=== PATIENT | female | born 2000 | race Caucasian/White ===

== ENCOUNTER 2018-02-21 12:11 | Observation (INO) | payer BC ==
[~2018-02-21] VITALS: Ht 157.5 cm; Wt 50.0 kg
--- NOTE | ~2018-02-21 | HP ---
PATIENT: BETTY PIERRE MEDICAL RECORD: [id number] ACCOUNT: [id number] LOCATION:[address] : [birth year] ADMISSION DATE: 02/21/18 PCP: ASHKAN SCRUGGS HISTORY AND PHYSICAL EXAMINATION HISTORY OF PRESENT ILLNESS: Ms. Pierre is a 17-year-old white female that presents to the Emergency Room with back pain, fever. She started having urinary tract symptoms approximately 2 weeks ago, was seen in the Emergency Room and started on antibiotics. She states she took all of her antibiotics. She presents today with findings compatible with pyelonephritis. She has been placed on observation for IV fluids and pain control. We will culture her urine. PAST MEDICAL HISTORY: Significant for depression and anxiety, for which she takes meds. PAST SURGICAL HISTORY: None. ALLERGIES: None. MEDICATIONS: Home medications include citalopram 20 mg once a day and hydroxyzine on a p.r.n. basis. FAMILY HISTORY: Noncontributory. SOCIAL HISTORY: The patient states that she does use tobacco and drink on occasion. REVIEW OF SYSTEMS: Significant for fever. No chest pain. No shortness of breath. She has had nausea and vomiting, abdominal and back pain, dysuria for 2 weeks. She has been okay. PHYSICAL EXAMINATION: GENERAL: She appears moderately ill. HEENT: Her mucous membranes are dry. NECK: Soft and supple. HEART: Regular. LUNGS: Clear. ABDOMEN: Soft. Tenderness in the back with palpation. IMPRESSION: Acute pyelonephritis. PLAN: Observation, IV fluids, culture urine, IV antibiotics, pain control. See orders for rest of the plan. TRANSINT:[id number] Voice Confirmation ID: [id number] DOCUMENT ID: [id number] HISTORY AND PHYSICAL [id number] BETTY PIERRE JOSE ARMANDO RUIZ DO at 2117 CC: [id number] DICTATION DATE: 02/21/181928 ELEMENTARY ASSISTANT PRINCIPAL: 02/21/182018 ADM IN [place] [address] [place] [address]
[2018-02-21 13:46] LABS: HCG URINE NEGATIVE (NEGATIVE)
[2018-02-21 13:50] LABS: APPEARANCE HAZY (CLEAR); COLOR STRAW (YELLOW); NITRITE NEGATIVE (NEGATIVE)
[2018-02-21 13:51] LABS: BACTERIA MODERATE /hpf (NONE SEEN); BILIRUBIN NEGATIVE (NEGATIVE); EPITHELIAL CELLS 0-5 /hpf (0-5); GLUCOSE NEGATIVE (NEGATIVE); KETONE NEGATIVE (NEGATIVE); PROTEIN NEGATIVE (NEGATIVE); RED CELLS - URINE 0-5 /hpf (0-5); UROBILINOGEN NORMAL (NORMAL)
[2018-02-21 13:52] LABS: AMORPHOUS SEDIMENT <1+ /lpf (NONE SEEN); MUCUS <1+ /lpf (NONE SEEN)
[2018-02-21 14:03] LABS: HEMATOCRIT 43.5 % (36.0-48.0); HEMOGLOBIN 14.4 g/dL (12-16); MCHC 33.1 g/dL (31.0-37.0); MCV 87.5 fL (80.0-100.0); MEAN PLATELET VOLUME 11.3 fL (7.4-10.4); PLATELET COUNT 306 10x3/uL (130-400); RBC 4.97 10x6/uL (4.00-5.40); RDW 14.1 % (11.5-14.5); WBC 25.3 10x3/uL (4.8-10.8)
[2018-02-21 14:28] LABS: LYMPHOCYTES 7 % (15-50); MONOCYTES 2 % (2-11); NEUTROPHILS 90 % (40-80); PLATELET ESTIMATE NORMAL
[2018-02-21 14:30] LABS: PLATELET MORPHOLOGY PLT CLUMPS PRESENT
[2018-02-21 14:44] LABS: ALBUMIN 3.9 g/dL (3.4-5.0); ALKALINE PHOSPHATASE 79 U/L (46-116); ALT (SGPT) 22 U/L (10-68); BILIRUBIN - TOTAL 0.38 mg/dL (0.2-1.3); CALC OSMOLALITY 282 mosm/kg (275-300); CALCIUM 8.7 mg/dL (8.5-10.1); CARBON DIOXIDE 21.8 mmol/L (21.0-32.0); CHLORIDE - SERUM 105 mmol/L (98-107); CREATININE - SERUM 0.5 mg/dL (0.6-1.3); GLUCOSE 149 mg/dL (74-106); POTASSIUM - SERUM 4.3 mmol/L (3.5-5.1); PROTEIN - SERUM 7.6 g/dL (6.4-8.2); SODIUM 141 mmol/L (136-145); UREA NITROGEN 10 mg/dL (7-18); eGFR NON AFRICAN AMERICAN > 90 mL/min (90-120)
[2018-02-21 14:47] LABS: AMYLASE - SERUM 76 U/L (25-115); LIPASE 207 U/L (73-393); TROPONIN-I < 0.017 ng/mL (0.000-0.060)
[2018-02-21 14:55] LABS: UDS - AMPHET NEGATIVE QUAL (NEGATIVE); UDS - BARB NEGATIVE QUAL (NEGATIVE); UDS - BENZO NEGATIVE QUAL (NEGATIVE); UDS - COCAINE NEGATIVE QUAL (NEGATIVE); UDS - OPIATE NEGATIVE QUAL (NEGATIVE); UDS - PCP NEGATIVE QUAL (NEGATIVE); UDS - THC POSITIVE QUAL (NEGATIVE)
[2018-02-21 15:48] VITALS: BP 131/81
[2018-02-21 16:45] VITALS: BP 110/67
[2018-02-21 18:16] VITALS: BP 108/63
[2018-02-21 20:53] VITALS: BP 104/56
[2018-02-22 00:12] VITALS: BP 95/46; Ht 157.5 cm; Wt 50.0 kg
[2018-02-22 05:26] VITALS: BP 96/48
[2018-02-22 07:04] LABS: BASOPHILS 0.1 % (0-2); EOSINOPHILS 0.4 % (0-7); HEMOGLOBIN 11.9 g/dL (12-16); IMMATURE GRANULOCYTES 0.2 % (0-5); LYMPHOCYTES 21.7 % (15-50); MCH 28.5 pg (26.0-34.0); MCHC 33.1 g/dL (31.0-37.0); MCV 86.1 fL (80.0-100.0); MEAN PLATELET VOLUME 11.2 fL (7.4-10.4); MONOCYTES 5.7 % (2-11); NEUTROPHILS 71.9 % (40-80); RBC 4.18 10x6/uL (4.00-5.40); RDW 14.1 % (11.5-14.5)
[2018-02-22 07:10] LABS: PLATELET COUNT 231 10x3/uL (130-400); WBC 12.6 10x3/uL (4.8-10.8)
[2018-02-22 07:19] LABS: ALKALINE PHOSPHATASE 57 U/L (46-116); BILIRUBIN - TOTAL 0.54 mg/dL (0.2-1.3); CALCIUM 8.2 mg/dL (8.5-10.1); CARBON DIOXIDE 24.1 mmol/L (21.0-32.0); CHLORIDE - SERUM 108 mmol/L (98-107); CREATININE - SERUM 0.5 mg/dL (0.6-1.3); POTASSIUM - SERUM 3.7 mmol/L (3.5-5.1); SODIUM 140 mmol/L (136-145); eGFR NON AFRICAN AMERICAN > 90 mL/min (90-120)
[2018-02-22 07:23] LABS: ALBUMIN 2.9 g/dL (3.4-5.0); ALT (SGPT) 16 U/L (10-68); CALC OSMOLALITY 275 mosm/kg (275-300); GLUCOSE 93 mg/dL (74-106); UREA NITROGEN 5 mg/dL (7-18)
[2018-02-22 11:30] VITALS: BP 101/47
[2018-02-22 11:56] LABS: HCG URINE NEGATIVE (NEGATIVE)
[2018-02-22] MEDS ORDERED: BACTRIM 400-801 TAB PO (14:11)
== END 2018-02-22 15:21 | disposition home or self-care (01) ==
LOC: D.ER 12:11 → D.EDHOLD 19:07 → OBSVTIME 19:07 → D.M3 20:27
PROVIDERS: Family Medicine
DX: N10 Acute pyelonephritis (principal); F41.9 Anxiety disorder, unspecified; F32.9 Major depressive disorder, single episode, unspecified; Z72.0 Tobacco use

== ENCOUNTER 2018-09-28 17:01 | Observation (INO) | payer OTHER ==
[~2018-09-28] VITALS: Ht 157.5 cm; Wt 46.5 kg
[~2018-09-28 17:01] MED LIST: BACTRIM 400-801 TAB PO
[2018-09-28] MEDS ORDERED: PHENERGAN25 M1 (17:14)
[2018-09-28 17:35] LABS: BASOPHILS 0 % (0-2); EOSINOPHILS 0 % (0-7); HEMOGLOBIN 13.7 g/dL (12-16); IMMATURE GRANULOCYTES 0.4 % (0-5); LYMPHOCYTES 4.7 % (15-50); MCH 28.8 pg (26.0-34.0); MCHC 34.3 g/dL (31.0-37.0); MCV 84.2 fL (80.0-100.0); MEAN PLATELET VOLUME 10.6 fL (7.4-10.4); MONOCYTES 1.6 % (2-11); NEUTROPHILS 93.3 % (40-80); RBC 4.75 10x6/uL (4.00-5.40); RDW 14.1 % (11.5-14.5); WBC 19.3 10x3/uL (4.8-10.8)
[2018-09-28 17:39] LABS: PLATELET COUNT 308 10x3/uL (130-400)
[2018-09-28 17:55] LABS: ALBUMIN 3.9 g/dL (3.4-5.0); ALKALINE PHOSPHATASE 89 U/L (46-116); ALT (SGPT) 28 U/L (10-68); AMYLASE - SERUM 63 U/L (25-115); BILIRUBIN - TOTAL 0.66 mg/dL (0.2-1.3); CALC OSMOLALITY 275 mosm/kg (275-300); CARBON DIOXIDE 22.9 mmol/L (21.0-32.0); CHLORIDE - SERUM 101 mmol/L (98-107); CREATININE - SERUM 0.7 mg/dL (0.6-1.3); LIPASE 127 U/L (73-393); POTASSIUM - SERUM 3.9 mmol/L (3.5-5.1); PROTEIN - SERUM 7.8 g/dL (6.4-8.2); SODIUM 136 mmol/L (136-145); UREA NITROGEN 15 mg/dL (7-18); eGFR NON AFRICAN AMERICAN > 90 mL/min (90-120)
[2018-09-28 17:56] LABS: GLUCOSE 151 mg/dL (74-106)
[2018-09-28 18:01] LABS: HCG SERUM NEGATIVE (NEGATIVE)
[2018-09-28 23:19] LABS: APPEARANCE CLEAR (CLEAR); BILIRUBIN NEGATIVE (NEGATIVE); COLOR YELLOW (YELLOW); GLUCOSE NEGATIVE (NEGATIVE); KETONE SMALL mg/dL (NEGATIVE); NITRITE NEGATIVE (NEGATIVE); PROTEIN NEGATIVE (NEGATIVE); UROBILINOGEN NORMAL (NORMAL)
[2018-09-28 23:22] LABS: BACTERIA FEW /hpf (NONE SEEN); RED CELLS - URINE 0-5 /hpf (0-5); WHITE CELLS - URINE 0-5 /hpf (0-5)
[2018-09-29 01:13] VITALS: BP 110/53
--- NOTE | 2018-09-29 02:10 | NUR ---
RECIEVED TO ROOM 2128 FROM ER VIA . PT A&O, RESPERATIONS EVEN ON RA. IV TO LEFT FOREARM WITH FLAGYL INFUSING, IV SITE CLEAN AND DRY. HISTORY AND MED REC OBTAINED. PT CURRENTLY DENIES PAIN OR NEEDS AT THIS TIME, BED LOW, CL IN REACH.
--- NOTE | 2018-09-29 03:06 | NUR ---
MORPHINE 2 MG GIVEN FOR C/O PAIN TO ABD. RATES PAIN AT AN 8 ON PAIN SCALE.
--- NOTE | 2018-09-29 03:40 | NUR ---
ZOFRAN DRIP INFUSING TO LEFT ARM.
[2018-09-29 04:19] VITALS: BMI 22.0
--- NOTE | 2018-09-29 05:42 | NUR ---
IV DISCONNECTED AND COVERED SO PT CAN TAKE SHOWER.
[2018-09-29 05:55] VITALS: BP 103/58
--- NOTE | 2018-09-29 06:04 | NUR ---
PT AMBULATING IN [place], GAIT STEADY.
[2018-09-29 07:42] VITALS: BP 96/57
--- NOTE | 2018-09-29 07:46 | NUR ---
MORNING ROUNDS MADE. PT LAYING IN BED WITH SIGNIFICANT OTHER. ZOFRAN CONNECTED TO IV IN L FA @ 4.7 WITH NS @ 100. RM AIR. BREATHING EVEN AND UNLABORED. NO C/O N/V. ASKED IF SHE COULD HAVE PAIN MEDS AT THIS TIME. INFORMED PT I WOULD CHECK ON EMAR. NO FURTHER CONCERNS AT THSI TIME. FALL PRECATIONS IN PLACE. WILL CTM.
--- NOTE | 2018-09-29 10:01 | NUR ---
PT TOOK MEDICATIONS WITHOUT DIFFICULTY. C/O PAIN IN LOWER ABD OF A 6/10 ON A 10 POINT PAIN SCALE. MORPHINE GIVEN IN IV TO R FA, PATENT, DRSG C/D/I. NO REDNESS OR EDEMA NOTED. FAMILY AT [facility]. NO FURTHER CONCERNS AT THIS TIME. FALL PRECAUTIONS IN PLACE. NICOTINE PATCH TO L SHOULDER. WILL CTM.
[2018-09-29 11:25] VITALS: BP 86/45
[2018-09-29 11:33] VITALS: BP 93/53
[2018-09-29 12:56] VITALS: Ht 157.5 cm; Wt 46.5 kg
--- NOTE | 2018-09-29 13:26 | NUR ---
I have reviewed this patient and I concur with the Shift Assessment completed by the Licensed Practical Nurse today this shift.
[2018-09-29] MEDS ORDERED: FLAGYL500 MG PO (14:21)
--- NOTE | 2018-09-29 14:37 | MORECARE ---
CASE MANAGEMENT DISCHARGE SUMMARY PATIENT: BETTY BRADFORD UNIT: [id number] ADM DATE: 09/29/18 AGE: 18 : 98 SEX: F ROOM/BED: D.4189 AUTHOR: IMANI BHATT PHYSICIAN: REFERRING PHYSICIAN: JAMIE CASTANEDA MD DATE OF SERVICE: 09/29/18 Discharge Plan Patient Name: BETTY BRADFORD Facility: [facility]:[place] : 2000 Planned Disposition: Home Anticipated Discharge Date: 09/29/18 Discharge Date: Expected LOS: 1 Initial Reviewer: [email or web address] Initial Review Date: 09/29/2018 Generated: 09/29/18 3:37 pm Patient Name: BETTY BRADFORD Page 48764 at 1437 All edits/amendments must be made on the electronic document DICTATION DATE: 09/29/18 1436 PATTERN CHANGER: SUSHIL 09/29/18 1436 RPT#: [id number] DC DATE: STATUS: ADM IN [facility] [address] [place] [address] END OF REPORT
--- NOTE | 2018-09-29 15:07 | NUR ---
PT C/O PAIN/CRAMPING IN LOWER ABD OF A 09/09. MORPHINE GIVEN TO IV IN L FA. NO FURTHER CONCERNS AT THIS TIME. WILL CTM
[2018-09-29 15:26] VITALS: BP 116/59
--- NOTE | 2018-09-29 15:36 | NUR ---
DISCHARGE GIVEN TO PT. NO CONCERNS AT THIS TIME IV IN L FA REMOVED, TIP INTACT.
--- NOTE | 2018-09-29 16:30 | NUR ---
PT DC TO DR. MAZARIEGOS OFFICE IN [facility] VIA WHEELCHAIR.
--- NOTE | 2018-09-29 23:22 | HP ---
PATIENT: BETTY BRADFORD MEDICAL RECORD: [id number] ACCOUNT: [id number] LOCATION:[facility] D2129 : [birth year] ADMISSION DATE: 09/29/18 PCP: No PCP HISTORY AND PHYSICAL EXAMINATION DATE OF ADMISSION: 09/29/2018 CHIEF COMPLAINT: Abdominal pain. HISTORY OF PRESENT ILLNESS: This is a 18-year-old white female who presented to the Emergency Department the night of 09/28/2018 complaining of nausea, vomiting, diarrhea that started that morning. She states she was diagnosed with gastroparesis last year. She states she saw a GI doctor, but does not remember who. In the ER, her white blood cell count was 19,300 and the rest of her lab was essentially normal. With her elevated white count, nausea, vomiting and diarrhea she is assigned to observation. Ultrasound of the pelvis was done showing a 3.9 cm cyst in the left ovary. CT of the abdomen and pelvis showed bilateral ovarian cysts and CUSTOMS COMPLIANCE ANALYST was also consulted. PAST MEDICAL AND SURGICAL HISTORY: She has had natural childbirth times 1. PAST SURGICAL HISTORY: IUD placement. DRUG ALLERGIES: None. MEDICATION: Promethazine p.r.n. FAMILY HISTORY: Father of a sudden AL. HABITS: She does smoke. Denies alcohol or drugs. SOCIAL HISTORY: She has a significant other. She has a child. REVIEW OF SYSTEMS: GENERAL: No major weight changes. HEENT: No particular sinus or allergy problems. RESPIRATORY: No history of asthma or emphysema. CARDIAC: No history of heart trouble. GASTROINTESTINAL: Reportedly a diagnosis of gastroparesis. GENITOURINARY: No significant problems there. MUSCULOSKELETAL: No problems. NEUROLOGIC: No history of migraines or seizures. PSYCHIATRIC: No depression or melancholia. PHYSICAL EXAMINATION: VITAL SIGNS: Temperature 98.1, pulse 62, respirations 18, blood pressure is 86/45. GENERAL: She is awake and alert, in no acute distress. She is feeling much better. SKIN: Warm and dry. HEENT: Grossly within normal limits. NECK: Supple. HEART: Regular rate and rhythm without murmur. LUNGS: Clear. ABDOMEN: Soft, nontender. HISTORY AND PHYSICAL [id number] BETTY BRADFORD EXTREMITIES: No edema. LABORATORY DATA: CBC with a white count of 19,300, hemoglobin 13.7, hematocrit is 40. Basic metabolic panel is all normal. Liver functions are all normal. Amylase and lipase were normal. Beta serum hCG is negative. CT of the abdomen and pelvis shows nothing acute. There are bilateral ovarian cysts. Appendix appears normal. Ultrasound of the pelvis shows 3.9 cm cyst in the left ovary. IUD is in place. Urinalysis; yellow, clear, small amount of ketones, 1+ blood, 5-10 epithelial cells, 0-4 clue cells, few bacteria. ASSESSMENT: 1. Nausea, vomiting, diarrhea with history of gastroparesis. 2. Elevated white count. 3. Ovarian cyst. PLAN: Consult Dr. Sims, Dr. Vazquez. The patient started on IV Flagyl and IV fluids. She states she is already feeling better. I spoke with Dr. Vazquez who has seen the patient in the room and he wants the patient to be brought to his office this afternoon, so he can remove the IUD. He did remark that there seemed to be a vaginal infection. After she completes his exam, in my opinion, she can be discharged home with follow up with Rajani Gunn APN, at [facility]. TRANSINT:[id number] Voice Confirmation ID: [id number] DOCUMENT ID: [id number] JAMIE CASTANEDA MD at 7772 CC: [id number] DICTATION DATE: 09/29/18 1336 BEAR KEEPER: 09/29/18 1420 DIS IN 09/29/18 [facility] [address] [place] [address]
== END 2018-09-29 16:30 | disposition home or self-care (01) ==
LOC: D.ER 17:01 → D.EDHOLD 09-29 00:10 → D.M2 09-29 00:10 → OBSVTIME 09-29 00:10 → D.M2 09-29 00:49
PROVIDERS: Family Medicine; ADMIT Family Medicine; ATTEND Family Medicine
DX: N76.0 Acute vaginitis (principal); N83.209 Unspecified ovarian cyst, unspecified side; K59.09 Other constipation

== ENCOUNTER 2018-11-08 03:30 | Emergency (ER) | payer BC ==
[~2018-11-08] VITALS: Ht 157.5 cm; Wt 50.0 kg
[~2018-11-08 03:30] MED LIST changes: +FLAGYL500 MG PO; +PHENERGAN25 M1
[2018-11-08 03:34] VITALS: Ht 157.5 cm; Wt 50.0 kg
[2018-11-08 04:16] LABS: BASOPHILS 0.1 % (0-2); EOSINOPHILS 0.1 % (0-7); HEMATOCRIT 38.1 % (36.0-48.0); IMMATURE GRANULOCYTES 0.2 % (0-5); LYMPHOCYTES 12.4 % (15-50); MCH 28.7 pg (26.0-34.0); MCHC 34.1 g/dL (31.0-37.0); MCV 84.1 fL (80.0-100.0); MEAN PLATELET VOLUME 11.2 fL (7.4-10.4); NEUTROPHILS 84.2 % (40-80); PLATELET COUNT 235 10x3/uL (130-400); RBC 4.53 10x6/uL (4.00-5.40); WBC 16.7 10x3/uL (4.8-10.8)
[2018-11-08 04:21] LABS: HCG SERUM NEGATIVE (NEGATIVE)
[2018-11-08 04:29] LABS: ALKALINE PHOSPHATASE 71 U/L (46-116); ALT (SGPT) 19 U/L (10-68); BILIRUBIN - TOTAL 0.46 mg/dL (0.2-1.3); CALC OSMOLALITY 282 mosm/kg (275-300); CARBON DIOXIDE 22.1 mmol/L (21.0-32.0); CHLORIDE - SERUM 104 mmol/L (98-107); CREATININE - SERUM 0.9 mg/dL (0.6-1.3); GLUCOSE 179 mg/dL (74-106); PROTEIN - SERUM 7.4 g/dL (6.4-8.2); SODIUM 139 mmol/L (136-145); UREA NITROGEN 15 mg/dL (7-18); eGFR NON AFRICAN AMERICAN 85 mL/min (90-120)
[2018-11-08 04:34] LABS: AMYLASE - SERUM 106 U/L (25-115); LIPASE 307 U/L (73-393); TROPONIN-I < 0.017 ng/mL (0.000-0.060)
[2018-11-08 04:48] LABS: APPEARANCE HAZY (CLEAR); COLOR YELLOW (YELLOW); SPECIFIC GRAVITY 1.015 (1.005-1.020)
[2018-11-08 04:49] LABS: BILIRUBIN NEGATIVE (NEGATIVE); GLUCOSE NEGATIVE (NEGATIVE); KETONE LARGE mg/dL (NEGATIVE); NITRITE NEGATIVE (NEGATIVE); PROTEIN NEGATIVE (NEGATIVE); UROBILINOGEN NORMAL (NORMAL)
[2018-11-08 04:53] LABS: UDS - AMPHET NEGATIVE QUAL (NEGATIVE); UDS - BARB NEGATIVE QUAL (NEGATIVE); UDS - BENZO NEGATIVE QUAL (NEGATIVE); UDS - COCAINE NEGATIVE QUAL (NEGATIVE); UDS - OPIATE NEGATIVE QUAL (NEGATIVE); UDS - PCP NEGATIVE QUAL (NEGATIVE); UDS - THC POSITIVE QUAL (NEGATIVE)
[2018-11-08] MEDS ORDERED: REGLAN10 MG PO (06:08)
[2018-11-08] MEDS ORDERED: PROTONIX40 MG PO (06:08)
[2018-11-08 09:28] VITALS: BP 85/42
== END 2018-11-08 09:25 | disposition home or self-care (01) ==
LOC: D.ER 03:30
PROVIDERS: Family Medicine
DX: G43.A0 Cyclical vomiting, in migraine, not intractable (principal)

== ENCOUNTER 2019-06-19 12:46 | Observation (INO) | payer BC ==
[~2019-06-19] VITALS: Ht 157.5 cm; Wt 56.7 kg
[~2019-06-19 12:46] MED LIST changes: +PROTONIX40 MG PO; +REGLAN10 MG PO
[2019-06-19 13:18] LABS: BASOPHILS 0.1 % (0-2); EOSINOPHILS 0.1 % (0-7); HEMOGLOBIN 10.9 g/dL (12-16); IMMATURE GRANULOCYTES 0.3 % (0-5); LYMPHOCYTES 4.2 % (15-50); MCH 28.9 pg (26.0-34.0); MCHC 34.1 g/dL (31.0-37.0); MCV 84.9 fL (80.0-100.0); MONOCYTES 2.8 % (2-11); NEUTROPHILS 92.5 % (40-80); RBC 3.77 10x6/uL (4.00-5.40); RDW 13.6 % (11.5-14.5)
[2019-06-19 13:19] LABS: PLATELET COUNT 339 10x3/uL (130-400)
[2019-06-19 13:23] LABS: APPEARANCE HAZY (CLEAR); COLOR YELLOW (YELLOW)
[2019-06-19 13:24] LABS: BILIRUBIN NEGATIVE (NEGATIVE); GLUCOSE NEGATIVE (NEGATIVE); KETONE NEGATIVE (NEGATIVE); NITRITE NEGATIVE (NEGATIVE); PROTEIN NEGATIVE (NEGATIVE); UROBILINOGEN NORMAL (NORMAL)
[2019-06-19 13:27] LABS: AMORPHOUS SEDIMENT >1+ /lpf (NONE SEEN); BACTERIA MANY /hpf (NEGATIVE); RED CELLS - URINE NONE SEEN /hpf (0-5); WHITE CELLS - URINE 0-5 /hpf (NEGATIVE)
[2019-06-19 13:28] LABS: CALC OSMOLALITY 271 mosm/kg (275-300); CARBON DIOXIDE 22.1 mmol/L (21.0-32.0); CHLORIDE - SERUM 101 mmol/L (98-107); CREATININE - SERUM 0.5 mg/dL (0.6-1.3); POTASSIUM - SERUM 4.1 mmol/L (3.5-5.1); SODIUM 136 mmol/L (136-145); UREA NITROGEN 9 mg/dL (7-18); eGFR NON AFRICAN AMERICAN > 90 mL/min (90-120)
[2019-06-19 13:30] LABS: GLUCOSE 117 mg/dL (74-106)
[2019-06-19 13:34] LABS: ALBUMIN 2.5 g/dL (3.4-5.0); ALKALINE PHOSPHATASE 162 U/L (46-116); ALT (SGPT) 26 U/L (10-68); BILIRUBIN - TOTAL 0.36 mg/dL (0.2-1.3); PROTEIN - SERUM 7.1 g/dL (6.4-8.2)
--- NOTE | 2019-06-19 14:45 | NUR ---
PROVIDED PT WITH ICE WATER PER PATIENT REQUEST. AYDEE BURGESS, STATES PT MAY HAVE WATER.
--- NOTE | 2019-06-19 15:07 | NUR ---
FLU SWAB COLLECTED AND SWENT TO LAB
[2019-06-19 15:53] VITALS: BP 97/45
--- NOTE | 2019-06-19 17:10 | NUR ---
PHONED DR HERRON; ORDERS RECEIVED TO KEEP PT OUTPATIENT FOR NOW, IVF OF 0.9% NS AT 150ML/HR, ZOFRAN IV Q4 HOURS PRN, LABS IN PROGRESS PER ER PHYSICIAN. TO ADD AMYLASE, LIPASE, CLEAR LIQUID DIET FOR NOW, ADVANCE TOLERATED OKAY, DOPPLER FHT EVERY SHIFT. WILL RELAY TO PT.
--- NOTE | 2019-06-19 17:15 | NUR ---
PT SIGNIFICANT OTHER "SPOONING" IN BED WITH PT, DISCUSSED POLICY TO NOT BEDSHARE SINCE SHE IS ILL AND . PT AND SIGNIFICANT OTHER STATES UNDERSTANDING. CALL LIGHT IN EASY REACH. REVIEWED PLAN OF CARE. WILL MONITOR.
--- NOTE | 2019-06-19 17:35 | NUR ---
FHT 160S PER DOPPLER WITH ACCELERATION TO 170S NOTED USING HANDHELD DOPPLER. VSS. IV OF NS AT 150ML/HR PER IVAC PUMP INFUSING PER MD ORDERS. REVIEWED MD ORDERS WITH PT AND PT SIGNIFICANT OTHER. BOTH STATE UNDERSTANDING. OFFERED CLEAR LIQUIDS, STATES WOULD LIKE A [place] SODA. SAME PROVIDED.
[2019-06-19 17:40] LABS: AMYLASE - SERUM 64 U/L (25-115); LIPASE 161 U/L (73-393)
--- NOTE | 2019-06-19 18:24 | NUR ---
pt c/o nausea, zofran 4mg sivp to left forearm piv site, tolerates well, site benign to inspection. will monitor.
[2019-06-19] MEDS ORDERED: AMOXICILLIN500 M1 PO (18:28)
[2019-06-19] MEDS ORDERED: ZOFRAN4 MG PO (18:30)
[2019-06-19 18:31] VITALS: Ht 157.5 cm; Wt 56.7 kg
[2019-06-19] MEDS ORDERED: PHENERGAN25 M1 (18:31)
--- NOTE | 2019-06-19 19:27 | NUR ---
PT MOVED TO [facility]OM[facility]S SERVICES ROOM 19 FOR CONTINUOUS ANTEPARTUM CARE.
[2019-06-19 20:58] VITALS: BP 107/57
--- NOTE | 2019-06-19 20:58 | NUR ---
VSS. PT COMPLAINS OF 3/10 HEADACHE PAIN. ONE TIME DOSE OF NORCO 5 PROVIDED TO PT.PT STATES SHE CURRENTLY DOES NOT FEEL NAUSEATED. HEART TONES OF 164 VIA DOPPLER. FAMILY AT BEDSIDE. BED IN LOWEST POSITON, SIDE RAILS UPX2, CALL LIGHT AND PHONE IN PLACE.
[2019-06-20 00:40] VITALS: BP 99/52
--- NOTE | 2019-06-20 00:40 | NUR ---
VSS. HEART TONES 168 VIA DOPPLER, PT STATES PAIN IS A 1/10 TO HER HEAD. PT WAS NAUSEATED, RN ADMINISTERED HER PRN ZOFRAN 4MG IVP PER MD ORDERS. PT STATES ALL HER NEEDS ARE CURRENTLY MET. BED IN LOWEST POSITON, SIDE RAILS UP X2, SIGNIFICANT OTHER AT BEDSIDE. PHONE AND CALL LIGHT WITHIN REACH.
[2019-06-20 03:36] LABS: BASOPHILS 0.1 % (0-2); EOSINOPHILS 0.1 % (0-7); HEMATOCRIT 28.6 % (36.0-48.0); HEMOGLOBIN 9.5 g/dL (12-16); IMMATURE GRANULOCYTES 0.4 % (0-5); LYMPHOCYTES 12.6 % (15-50); MCH 28.4 pg (26.0-34.0); MCHC 33.2 g/dL (31.0-37.0); MCV 85.6 fL (80.0-100.0); MEAN PLATELET VOLUME 9.7 fL (7.4-10.4); MONOCYTES 7.6 % (2-11); NEUTROPHILS 79.2 % (40-80); PLATELET COUNT 285 10x3/uL (130-400); RBC 3.34 10x6/uL (4.00-5.40); RDW 13.5 % (11.5-14.5)
[2019-06-20 03:47] LABS: WBC 7.4 10x3/uL (4.8-10.8)
[2019-06-20 03:57] LABS: CALC OSMOLALITY 264 mosm/kg (275-300); CALCIUM 7.5 mg/dL (8.5-10.1); CHLORIDE - SERUM 102 mmol/L (98-107); CREATININE - SERUM 0.5 mg/dL (0.6-1.3); GLUCOSE 93 mg/dL (74-106); MAGNESIUM - SERUM 1.7 mg/dL (1.8-2.4); PHOSPHOROUS 2.2 mg/dL (2.5-4.9); POTASSIUM - SERUM 3.7 mmol/L (3.5-5.1); SODIUM 134 mmol/L (136-145); eGFR NON AFRICAN AMERICAN > 90 mL/min (90-120)
[2019-06-20 03:59] LABS: UREA NITROGEN 3 mg/dL (7-18)
[2019-06-20 04:31] VITALS: BP 103/64
--- NOTE | 2019-06-20 04:31 | NUR ---
VSS. HEART TONES 164 VIA DOPPLER. PT STATES SHE HAS AN ACHY PAIN TO THE RIGHT SIDE OF HER BODY FOR THE PAST WEEK, SHE STATES THAT "IT FEELS LIKE MY MUSCLE IS PULLED" PT STATES PAIN IS A 3/10 TO HER RIGHT SIDE OF THE BODY WHEN SHE IS TURNING IN BED. PT STATES ALL HER OTHER NEEDS HAVE BEEN MET. BED IN LOWEST POSITION, SIDE RAILS UP X2, PHONE AND CALL LIGHT WITHIN REACH.
--- NOTE | 2019-06-20 08:45 | NUR ---
PHONE CALL RECEIVED FROM Nando CANSECO RN WITH REQUEST FOR THIS RN TO ASSUME CARE AND DISCHARGE OF PT DUE TO ACUITY OF PT ON LD. REPORT RECEIVED FROM Nando CANSECO RN THAT PT IS ANTEPARTUM FOR DIARRHEA, RESOLVED THROUGH THE NIGHT, AND MD HAS GIVEN DISCHARGE ORDER TO CALL IN ZOFRAN ODT 4 MG ONE PO Q 4HRS PRN, #10 TABLETS.
[2019-06-20 09:15] VITALS: BP 117/68
--- NOTE | 2019-06-20 09:20 | NUR ---
FHR BY DOPPLER 150'S. ABDOMEN PALPATES SOFT. PT DENIES VAG BLEEDING OR LEAKING OF FLUID.
--- NOTE | 2019-06-20 09:30 | NUR ---
IV TO RIGHT FOREARM DC'D WITH CATH INTACT. PT QUE WELL. DISCHARGE INSTRUCTIONS EXPLAINED TO PT, COPY PROVIDED. PT HAS REQUESTED RAS BE CALLED TO [facility]. PT DENIES ALL QUESTIONS.
--- NOTE | 2019-06-20 09:40 | NUR ---
PT AMBULATORY OFF UNIT IN STABLE CONDITION WITH SIG OTHER. DISCHARGE INSTRUCTIONS IN HAND.
--- NOTE | 2019-06-20 09:45 | NUR ---
ZOFRAN 4 MG ODT ONE PO Q 4 HRS PRN #10 NO RF CALLED TO [facility] REQUESTED BY PT.
== END 2019-06-20 09:40 | disposition home or self-care (01) ==
LOC: D.ER 12:46 → D.LD 15:53 → OBSVTIME 15:53 → D.WS 22:00
PROVIDERS: Family Medicine; ADMIT Obstetrics & Gynecology; ATTEND Obstetrics & Gynecology
DX: O99.612 Diseases of the digestive system complicating pregnancy, second trimester (principal); K52.9 Noninfective gastroenteritis and colitis, unspecified; O23.42 Unspecified infection of urinary tract in pregnancy, second trimester; Z3A.16 16 weeks gestation of pregnancy

== ENCOUNTER 2019-11-24 05:07 | Inpatient (IN) | payer BC, OTHER ==
[~2019-11-24] VITALS: Ht 157.5 cm; Wt 72.6 kg
[~2019-11-24 05:07] MED LIST changes: +AMOXICILLIN500 M1 PO; +ZOFRAN4 MG PO
[2019-11-24] MEDS ORDERED: PRENAVITE1 TAB PO (05:42)
[2019-11-24 05:44] VITALS: BP 116/61; Ht 157.5 cm; Wt 72.6 kg
[2019-11-24 06:07] LABS: HEMOGLOBIN 10.6 g/dL (12-16); MCHC 32.1 g/dL (31.0-37.0); MCV 81.1 fL (80.0-100.0); MEAN PLATELET VOLUME 11.5 fL (7.4-10.4); RBC 4.07 10x6/uL (4.00-5.40); RDW 14.3 % (11.5-14.5); WBC 6.5 10x3/uL (4.8-10.8)
[2019-11-24 06:12] LABS: UDS - AMPHET NEGATIVE QUAL (NEGATIVE); UDS - BARB NEGATIVE QUAL (NEGATIVE); UDS - BENZO NEGATIVE QUAL (NEGATIVE); UDS - COCAINE NEGATIVE QUAL (NEGATIVE); UDS - OPIATE NEGATIVE QUAL (NEGATIVE); UDS - PCP NEGATIVE QUAL (NEGATIVE); UDS - THC NEGATIVE QUAL (NEGATIVE)
--- NOTE | 2019-11-24 21:45 | NUR ---
PATIENT TRANSFERRED TO POST ROOM 1257. PATIENT ORIENTED TO ROOM AND CALL SYSTEM. BED IN LOWEST POSTION, SIDE RAILS UP X 2. C/L AND WATER WITHIN REACH.
--- NOTE | 2019-11-24 23:15 | NUR ---
PATIENT SITTING UP IN BED INFANT. PATIENT STATES PAIN IS 5 OUT OF 10. PRN NORCO 10/325 ADMINISTERED PO. PATIENT DENIES ANY FURTHER NEEDS. BED IN LOWEST POSITION, SIDE RAILS UP X 2, C/L AND WATER WITHIN REACH.
--- NOTE | 2019-11-25 01:00 | NUR ---
PATIENT LYING IN BED WITH EYES CLOSED. EASILY AROUSED. DENIES PAIN AT THIS TIME. DENIES ANY NEEDS. BED IN LOWEST POSITION, SIDE RAILS UP X 2, C/L AND WATER WITHIN REACH.
--- NOTE | 2019-11-25 03:22 | NUR ---
PATIENT SITTING UP IN BED INFANT. STATES PAIN 7 OUT OF 10. PRN NORCO 10/325 ADMINISTERED PO. VS DONE. PATIENT DENIES FURTHER NEEDS. BED IN LOWEST POSITION, SIDE RAILS UP X 2, C//L AND WATER WITHIN REACH.
[2019-11-25 03:27] VITALS: BP 105/60
--- NOTE | 2019-11-25 03:30 | NUR ---
500 CC'S OF CLEAR YELLOW URINE EMPTIED FROM SPECIMEN HAT.
--- NOTE | 2019-11-25 05:03 | NUR ---
PATIENT SITTING UP IN BED HOLDING . PATIENT STATES STARTED SPITTING UP AND CHOKING. PATIENT HOLDING UPRIGHT PATTING BACK AND BULB SYRINGE MOTHER AND NOSE. INFANT COLOR PINK. INFANT TRANSFERRED IN NURSERY TO BE MONITORED. PATIENT DENIES ANY NEEDS. DENIES PAIN. BED IN LOWEST POSITIN, SIDE RAILS UP X 2, C/L AND WATER WITHIN REACH.
[2019-11-25 05:10] LABS: RAPID PLASMA REAGIN Non Reactive (Non Reactive)
--- NOTE | 2019-11-25 05:45 | NUR ---
REPORT GIVEN TO JACKIE PAEZ
--- NOTE | 2019-11-25 06:07 | NUR ---
ROOM CHECK COMPLETE. PATIENT SITTING UP IN BED WITH IN ARMS. PATIENT DENIES PAIN OR NEEDS AT THIS TIME.
--- NOTE | 2019-11-25 07:34 | NUR ---
PT C/O ABDOMINAL CRAMPING AND PAIN TO PERINEUM OF "7" ON 0-10 PAIN SCALE. NORCO 10/325 AND MOTRIN 600 MG GIVEN PO ORDERED. PT INSTRUCTED ON MEDS. VERBALIZES UNDERSTANDING. ICE PACK TO PERINEUM AT PT REQUEST.
[2019-11-25 07:54] LABS: BASOPHILS 0.1 % (0-2); EOSINOPHILS 0.5 % (0-7); HEMATOCRIT 34.2 % (36.0-48.0); HEMOGLOBIN 10.8 g/dL (12-16); IMMATURE GRANULOCYTES 0.1 % (0-5); LYMPHOCYTES 19.8 % (15-50); MCH 25.9 pg (26.0-34.0); MCHC 31.6 g/dL (31.0-37.0); MEAN PLATELET VOLUME 11.1 fL (7.4-10.4); MONOCYTES 5.3 % (2-11); NEUTROPHILS 74.2 % (40-80); PLATELET COUNT 206 10x3/uL (130-400); RBC 4.17 10x6/uL (4.00-5.40); RDW 14.4 % (11.5-14.5)
[2019-11-25 07:59] LABS: WBC 10.4 10x3/uL (4.8-10.8)
--- NOTE | 2019-11-25 08:30 | NUR ---
PAIN REASSESMENT AT THIS TIME SHE RATES PAIN AT 0/10, IN CRIB AT BEDSIDE. PT IS DROWSY AND ASK THAT SHE BE ALLOWED TO TRY AND NAP. SIG OTHER PRESENT ALSO. SIDE RAILS UP X 2 WITH CALL LIGHT IN REACH.
--- NOTE | 2019-11-25 09:30 | NUR ---
AM ASSESMENT COMPLETED AT THIS TIME CHARTED TO FLOWSHEET. RATES PAIN AT 0/10, FUNDUS FIRM AT U/1 WITH LIGHT BLEEDING TO ELVIRA PAD, SHE DENIES CLOTS WITH VOIDS. ELVIRA PAD AND MESH BRIEFS PLACED IN BATHROOM REQUESTED, AND PROVIDED WITH LARGE ICE WATER. NO OTHER NEEDS AT THIS TIME. CALL LIGHT IN REACH.
--- NOTE | 2019-11-25 11:48 | NUR ---
PAIN MED GIVEN PT REQUESTED, RATES AT 4/10. INFANT IN CRIB AT BEDSIDE, SIDE RAILS UP X 2 WITH CALL LIGHT IN REACH.
--- NOTE | 2019-11-25 12:36 | NUR ---
PAIN REASSEMENT COMPLETED, PT RESTING WITH LIGHTS OUT. CALL LIGHT IS WITHIN HER REACH.
--- NOTE | 2019-11-25 15:00 | NUR ---
CALLED TO ROOM, PT IS ASKING FOR GLUCOSE WATER FOR . NURSERY NOTIFIED. NO OTHER NEEDS AT THIS TIME.
--- NOTE | 2019-11-25 17:45 | NUR ---
PT CALLS OUT FOR PAIN MED, THIS RN TO BEDSIDE FOR PAIN ASSESSMENT, SHE RATES AT 7/10, PATIENT IS AT THIS TIME. PAIN MEDS GIVEN SCANNED TO EMAR. SALINE LOCK REMOVED FROM RIGHT HAND DUE TO PT COMPLAINT OF "GETTING REALLY SORE" CATH NOTED TO BE INTACT. NO OTHER NEEDS VOICED AT THIS TIME. SIG OTHER AT BEDSIDE.
--- NOTE | 2019-11-25 19:37 | NUR ---
PM ROUNDS MADE, PT WANTING TO TAKE A SHOWER, LINENS PROVIDED, PT DENIES FURTHER NEEDS, INFANT IN OPEN CRIB CART AND FOB AT BEDSIDE
--- NOTE | 2019-11-25 20:30 | NUR ---
PT AT THIS TIME, PT REPORTS "CRAMPING IS COMING BACK", PAIN MED IS WRITTEN ON THE BOARD THAT PT CAN HAVE IT AT 9:30, SO PT STATES "I CAN HAVE MY PAIN MED AT THAT TIME", INFORMED PT THAT I WILL DO ASSESSMENT AND ADM PAIN MED AT THAT TIME, PT VERBALIZES UNDERSTANDING, DENIES NEEDS AT THIS TIME, FOB AT BEDSIDE
[2019-11-25 21:35] VITALS: BP 99/54
--- NOTE | 2019-11-25 21:35 | NUR ---
ASSESSMENT PER FLOW SHEET, VS OBTAINED, FF, ML, U/2, LITE BLEEDING WITH NO CLOTS, PT REPORTS FLATUS, BM TODAY AND VOIDING WITH NO DIFFICULTY, C/O CRAMPING, WILL ADM PAIN MED AT 10PM SINCE PT HAD RECEIVED A DOSE AROUND 6PM, PT VERBALIZES UNDERSTANDING, DENIES NEEDS AT THIS TIME, DINNER TRAY REMOVED, FOB HOLDING
--- NOTE | 2019-11-25 22:16 | NUR ---
PT HOLDING INFANT, ADM NORCO PO PER MD ORDERS, SEE MAR, PT DENIES FURTHER NEEDS
--- NOTE | 2019-11-26 00:09 | NUR ---
PT , C/O CRAMPING, ADM MOTRIN PER MD ORDERS, SEE EMAR, PT REQUESTED AND PROVIDED ICE PACK FOR PERINEAL AREA, PT DENIES FURTHER NEEDS, FOB AT BEDSIDE
--- NOTE | 2019-11-26 02:08 | NUR ---
PT HOLDING INFANT, DENIES NEEDS OR PAIN AT THIS TIME, FOB AT BEDSIDE
--- NOTE | 2019-11-26 04:30 | NUR ---
PT RESTING WITH EYES CLOSED, RESP QUIET, NOT DISTRESS NOTED, LEFT UNDISTURBED AT THIS TIME, FOB ASLEEP IN BED WITH PT
--- NOTE | 2019-11-26 05:24 | NUR ---
INFANT TO ROOM VIA OPEN CRIB CART PER NSY NURSE
--- NOTE | 2019-11-26 06:09 | NUR ---
PT , C/O CRAMPING, ADM NORCO AND MOTRIN PO PER MD ORDERS, SEE EMAR, PT DENIES FURTHER NEEDS, FOB ASLEEP ON COUCH
--- NOTE | 2019-11-26 08:17 | NUR ---
AM ASSESSMENT COMPLETED CHARTED TO FLOWSHEET, PT RATES PAIN AT 2/10 AND STATES MAINLY PRESSURE IN PERINEUM. FUNDUS FIRM AT U/U,PT DENIES CLOTS WITH VOIDS. QUESTIONS ASKED ABOUT DISCHARGE TODAY AND STATES UNDERSTANDING THAT WILL NOT BE READY FOR D/C UNTIL AFTER 48HRS FROM TIME OF DELIVERY. NO OTHER QUESTIONS OR CONCERNS AT THIS TIME. REGULAR DIET PER DIETARY BROUGHT TO ROOM. CALL LIGHT IN REACH, IN CRIB AT BEDSIDE WITH SPOUSE ON COUCH.
--- NOTE | 2019-11-26 10:45 | NUR ---
PAIN MED GIVEN PER PT REQUEST FOR PAIN THAT SHE RATES AT 5/10. CLEAN SHIRT AND BLANKET BROUGHT TO ROOM SHE ASKED FOR, TO BREAST AT THIS TIME AND PT DENIES ANY OTHER NEEDS. CALL LIGHT REMAINS WITH IN HER REACH.
--- NOTE | 2019-11-26 11:30 | NUR ---
PAIN REASSSESSMENT, SHE RATES PAIN AT 2/10 AT THIS TIME, LARGE ICE WATER PER REQUEST. NO OTHER NEEDS AT THIS TIME.
[2019-11-26] MEDS ORDERED: IBUPROFEN600 MG PO (14:29)
[2019-11-26] MEDS ORDERED: HYDROCODON-ACE1 EAC7 PO (14:29)
--- NOTE | 2019-11-26 15:00 | NUR ---
CALLED OUT REQUESTING PAIN MED. RATES PAIN AT 7/10, MEDS GIVEN SCANNED TO EMAR. TO BREAST AT THIS TIME. CALL LIGHT IN REACH.
--- NOTE | 2019-11-26 17:08 | NUR ---
VERBAL AND WRITTEN DISCHARGE INSTRUCTIONS GONE OVER WITH WRITTEN SCRIPTS GIVEN FOR NORCO 5/325MG AND MOTRIN 600MG. PT STATES WHEN AND HOW EACH MED SHOULD BE TAKEN AND DENIES QUESTIONS OR CONCERNS. WILL NOTIFY NURSERY WHEN INFANT HAS BEEN SECURED IN TO CARRIER.
== END 2019-11-26 17:35 | disposition home or self-care (01) | DRG 807 ==
LOC: D.LD 05:07
PROVIDERS: ADMIT Obstetrics & Gynecology; ATTEND Obstetrics & Gynecology
PROC: 10E0XZZ Delivery of Products of Conception, External Approach (ICD-10-PCS; principal; 2019-11-24)
PROC: 10907ZC Drainage of Amniotic Fluid, Therapeutic from Products of Conception, Via Natural or Artificial Opening (ICD-10-PCS; 2019-11-24)
PROC: 3E033VJ Introduction of Other Hormone into Peripheral Vein, Percutaneous Approach (ICD-10-PCS; 2019-11-24)
DX: O99.824 Streptococcus B carrier state complicating childbirth (principal); Z37.0 Single live birth; Z3A.39 39 weeks gestation of pregnancy; O69.81X0 Labor and delivery complicated by cord around neck, without compression, not applicable or unspecified

== ENCOUNTER 2020-02-07 07:40 | Observation (INO) | payer BC, OTHER ==
[~2020-02-07] VITALS: Ht 157.5 cm; Wt 63.6 kg
[2020-02-07] VITALS (8 sets, daily range): BP systolic 104–117; BP diastolic 61–76; Ht 157.5 cm; Wt 63.6 kg
--- NOTE | ~2020-02-07 | OP ---
PATIENT NAME: BETTY BRADFORD MEDICAL RECORD: [id number] :[birth year] LOCATION:D.M2 D.2104 ADMISSION DATE:02/07/20 SURGEON: MUKUL FOLEY MD DATE OF OPERATION: 02/08/2020 PREOPERATIVE DIAGNOSES: 1. Acute cholecystitis. 2. Ovarian cyst. 3. Gastroparesis. POSTOPERATIVE DIAGNOSES: 1. Acute cholecystitis. 2. Ovarian cyst. 3. Gastroparesis. PROCEDURES: Laparoscopic cholecystectomy. SURGEON: Muukl Foley MD SAP BUSINESS OBJECTS DEVELOPER: Dr. Zachary Vazquez REPORT OF PROCEDURE: The patient's abdomen was prepped and draped in sterile fashion. A semicircular incision was made on the inferior aspect of the umbilicus. Electrocautery was used to dissect through the subcutaneous tissues. We elevated the umbilicus and found a fatty mass. This mass did not appear to be connected to the patient's abdominal cavities and did not appear to be consistent with hernia defect. It appeared to be more consistent with a lipoma. This mass was completely excised. The patient did have a small opening in the fascia right at the base of the umbilicus and this was extended in order for us to enter the abdominal cavity. 0 Vicryls were placed on the fascia and a 12-mm Thuy was inserted into the abdomen. Under direct visualization, a 5 mm trocar was placed in the epigastrium and 2 more 5-mm trocars were placed in the right subcostal region. The gallbladder was grasped and elevated. There are some inflammatory changes present, but it did not appear to be acutely gangrenous or necrotic. There were no stones felt. We were able to dissect out the cystic artery and cystic duct and these were clipped proximally and distally and ligated in standard fashion. The gallbladder was taken off the liver bed using electrocautery and placed into the right upper quadrant. Any bleeding from the liver bed was then treated with electrocautery. We then irrigated out the right upper quadrant and assured there was no sign of any bleeding or bile leakage. At this point, Dr. Vazquez did an evaluation of the patient's bilateral ovaries and he will dictate that in another note. At this point, the ports and insufflation were then removed and the gallbladder was taken out through the umbilicus. The umbilical fascia was closed with interrupted 0 Vicryls times 3. The wounds were then irrigated out with normal saline, infused with 10 mL of 0.25% Marcaine with epinephrine. The umbilicus was tacked down with a single interrupted 3-0 Vicryl and the subcutaneous tissues were reapproximated with interrupted 3-0 Vicryl. The skin incisions were all closed with subcutaneous 5-0 Monocryl and dressed appropriately. COMPLICATIONS: None. CONDITION: Stable. ANESTHESIA: General endotracheal and local. OPERATIVE REPORT [id number] BETTY BRADFORD BLOOD LOSS: Minimal. TRANSINT:[id number] Voice Confirmation ID: [id number] DOCUMENT ID: [id number] MUKUL FOLEY MD CC: [id number] DICTATION DATE: 02/08/20 1125 GENERAL PARTNER: 02/08/201917 DIS IN 02/08/20 [facility] [address] [place] [address]
[~2020-02-07 07:40] MED LIST changes: +HYDROCODON-ACE1 EAC7 PO; +IBUPROFEN600 MG PO; +PRENAVITE1 TAB PO
[2020-02-07] MEDS ORDERED: CELEXA20 MG PO (07:46)
[2020-02-07 08:01] LABS: BASOPHILS 0.1 % (0-2); EOSINOPHILS 0 % (0-7); HEMATOCRIT 39.8 % (36.0-48.0); HEMOGLOBIN 12.7 g/dL (12-16); IMMATURE GRANULOCYTES 0.2 % (0-5); LYMPHOCYTES 3.9 % (15-50); MCHC 31.9 g/dL (31.0-37.0); MCV 87.9 fL (80.0-100.0); MEAN PLATELET VOLUME 10.1 fL (7.4-10.4); MONOCYTES 4.1 % (2-11); NEUTROPHILS 91.7 % (40-80); PLATELET COUNT 245 10x3/uL (130-400); RBC 4.53 10x6/uL (4.00-5.40); RDW 17.3 % (11.5-14.5)
[2020-02-07 08:10] LABS: CALC OSMOLALITY 285 mosm/kg (275-300); CALCIUM 8.8 mg/dL (8.5-10.1); CARBON DIOXIDE 25.8 mmol/L (21.0-32.0); CHLORIDE - SERUM 102 mmol/L (98-107); CREATININE - SERUM 0.9 mg/dL (0.6-1.3); POTASSIUM - SERUM 3.7 mmol/L (3.5-5.1); SODIUM 142 mmol/L (136-145); UREA NITROGEN 7 mg/dL (7-18); eGFR NON AFRICAN AMERICAN 84 mL/min (90-120)
[2020-02-07 08:12] LABS: GLUCOSE 190 mg/dL (74-106)
[2020-02-07 08:14] LABS: HCG SERUM NEGATIVE (NEGATIVE)
--- NOTE | 2020-02-07 08:15 | NUR ---
URINE SPEC COLLECTED, LABELED AT BS AND SENT TO LAB
[2020-02-07 08:19] LABS: ALBUMIN 3.9 g/dL (3.4-5.0); ALKALINE PHOSPHATASE 83 U/L (30-120); ALT (SGPT) 18 U/L (10-68); AMYLASE - SERUM 70 U/L (25-115); BILIRUBIN - TOTAL 0.29 mg/dL (0.2-1.3); LIPASE 114 U/L (73-393); PROTEIN - SERUM 7.3 g/dL (6.4-8.2)
[2020-02-07 08:20] LABS: TROPONIN-I < 0.017 ng/mL (0.000-0.060)
[2020-02-07 08:42] LABS: BILIRUBIN NEGATIVE (NEGATIVE); KETONE MODERATE mg/dL (NEGATIVE); NITRITE NEGATIVE (NEGATIVE); UROBILINOGEN NORMAL (NORMAL)
[2020-02-07 08:43] LABS: EPITHELIAL CELLS 0-5 /hpf (0-5); RED CELLS - URINE 0-5 /hpf (0-5); WHITE CELLS - URINE 0-5 /hpf (0-5)
[2020-02-07 08:44] LABS: AMORPHOUS SEDIMENT <1+ /lpf (NONE SEEN); BACTERIA FEW /hpf (NONE SEEN)
--- NOTE | 2020-02-07 08:53 | NUR ---
TO CT VIA STRETCHER WITH CONTRACT DESIGN AGENT
--- NOTE | 2020-02-07 09:12 | NUR ---
RTND FROM CT. RESTING ON LEFT SIDE WITH EYES CLOSED. AROUSES EASILY "JUST LET ME SLEEP" PAIN DECREASED. VSS
--- NOTE | 2020-02-07 10:29 | NUR ---
NASAL SWAB COLLECTED, LABELED AT BS AND SENT TO LAB
--- NOTE | 2020-02-07 13:00 | NUR ---
ATTEMPTED TO CALL REPORT NURSE UNAVAILABLE
--- NOTE | 2020-02-07 13:21 | NUR ---
REPORT TO NURSE JULIUS
--- NOTE | 2020-02-07 14:16 | NUR ---
ARRIVES TO ROOM VIA STRETCHER FROM ER ACCOMPANIED BY STAFF AND SPOUSE. AMBULATES TO BED GAIT STEADY. MORPHINE ENVIRONMENTAL HEALTH SANITARIAN PUMP INFUSING ORDERED. REFUSE SCDs. RECIEVES LOVENOX INJ. ARRIVES TO ROOM. CONTINUE PLAN OF CARE AND SAFETY PRECAUTIONS.
--- NOTE | 2020-02-07 15:46 | NUR ---
ALERT AND ORIENTED X4. SITTING UP IN BED. CONSENTS FOR PROCEDURE SIGNED ON CHART. CONTINUE PAIN MANAGEMENT ORDERED. DENIES ANY NEEDS. CONTINUE PLAN OF CARE AND SAFETY PRECAUTIONS.
--- NOTE | 2020-02-08 03:45 | NUR ---
UP TO SHOWER WITH HIBICLENS.
[2020-02-08 04:00] VITALS: BP 122/71
--- NOTE | 2020-02-08 04:41 | NUR ---
I have reviewed this patient and I concur with the Shift Assessment completed by the Licensed Practical Nurse today this shift.
[2020-02-08 05:19] LABS: BASOPHILS 0.1 % (0-2); EOSINOPHILS 0.5 % (0-7); HEMATOCRIT 36.8 % (36.0-48.0); HEMOGLOBIN 11.3 g/dL (12-16); IMMATURE GRANULOCYTES 0.1 % (0-5); LYMPHOCYTES 24.7 % (15-50); MCH 27.5 pg (26.0-34.0); MCHC 30.7 g/dL (31.0-37.0); MCV 89.5 fL (80.0-100.0); MEAN PLATELET VOLUME 11.1 fL (7.4-10.4); MONOCYTES 6.6 % (2-11); PLATELET COUNT 248 10x3/uL (130-400); RBC 4.11 10x6/uL (4.00-5.40); RDW 17.6 % (11.5-14.5)
[2020-02-08 05:21] LABS: WBC 10.5 10x3/uL (4.8-10.8)
[2020-02-08 05:43] LABS: ALBUMIN 3.1 g/dL (3.4-5.0); BILIRUBIN - TOTAL 0.46 mg/dL (0.2-1.3); CALCIUM 7.8 mg/dL (8.5-10.1); PROTEIN - SERUM 6.1 g/dL (6.4-8.2)
[2020-02-08 07:50] VITALS: BP 109/67
--- NOTE | 2020-02-08 08:09 | NUR ---
PT RECEIVED ASLEEP WITH FAMILY AT BEDSIDE. MS TENANT SELECTOR IN USE. NPO FOR SURGERY TODAY.
--- NOTE | 2020-02-08 10:54 | NUR ---
PATIENT NOTED TO HAVING MULTIPLE SCABBY AREAS ON BILATERAL LOWER EXTREMITIES, TWORLEY.
[2020-02-08] MEDS ORDERED: HYDROCODON-ACE1 EA10 PO (11:26)
[2020-02-08 12:35] VITALS: BP 113/67
--- NOTE | 2020-02-08 12:35 | NUR ---
PT BACK TO FLOOR FROM PACU. LAP SITES X4 NOTED TO ABDOMEN, CLEAN AND DRY. PAIN MEDS GIVEN, CLEAR LIQUIDS FOR NOW BUT AAT.
[2020-02-08 16:11] VITALS: BP 119/68
--- NOTE | 2020-02-08 16:22 | NUR ---
PT'S DISCHARGE INSTRUCTIONS REVIEWED AND SIGNED. IV REMOVED. SCRIPT FOR PAIN MEDS GIVEN TO SPOUSE. WHEELED TO ER FOR DISCHARGE. PT ATE SOLID FOOD WITHOUT NAUSEA, PAIN CONTROLLED, ABLE TO AMBULATE AND VOID WITHOUT PROBLEMS.
--- NOTE | 2020-02-09 07:57 | MORECARE ---
CASE MANAGEMENT DISCHARGE SUMMARY PATIENT: BETTY BRADFORD UNIT: [id number] ADM DATE: 02/07/20 AGE: 19 : 98 SEX: F ROOM/BED: D.2104 AUTHOR: IMANI BHATT PHYSICIAN: REFERRING PHYSICIAN: RITESH FOLEY MD DATE OF SERVICE: 02/09/20 Discharge Plan Patient Name: BETTY BRADFORD Facility: [facility]:[place] : 2000 Planned Disposition: Anticipated Discharge Date: Discharge Date: 02/08/2020 Expected LOS: 0 Initial Reviewer: [email or web address] Initial Review Date: 02/09/2020 Generated: 02/09/20 8:56 am Patient Name: BETTY BRADFORD Page [id number] at 0757 All edits/amendments must be made on the electronic document DICTATION DATE: 02/09/20 0756 MEDICAL ASSOCIATE: SUSHIL 02/09/20 0756 RPT#: [id number] DC DATE:02/08/20 STATUS: DIS IN [facility] [address] [place] [address] END OF REPORT
--- NOTE | 2020-02-09 08:06 | MORECARE ---
CASE MANAGEMENT DISCHARGE SUMMARY PATIENT: BETTY BRADFORD UNIT: [id number] ADM DATE: 02/07/20 AGE: 19 : [birth year] SEX: F ROOM/BED: D.2104 AUTHOR: IMANI BHATT PHYSICIAN: REFERRING PHYSICIAN: RITESH FOLEY MD DATE OF SERVICE: 02/09/20 Discharge Plan Patient Name: BETTY BRADFORD Facility: [facility]:[place] : 2000 Planned Disposition: Anticipated Discharge Date: Discharge Date: 02/08/2020 Expected LOS: 0 Initial Reviewer: [email or web address] Initial Review Date: 02/09/2020 Generated: 02/09/20 9:06 am Patient Name: BETTY BRADFORD Page 78231 at 0806 All edits/amendments must be made on the electronic document DICTATION DATE: 02/09/20805 SIGNAL INTELLIGENCE ANALYST: SUSHIL 02/09/20 08 RPT#: [id number] DC DATE:02/08/20 STATUS: DIS IN [facility] [address] [place] [address] END OF REPORT
== END 2020-02-08 16:24 | disposition home or self-care (01) ==
LOC: D.ER 07:40 → D.M2 12:18 → OBSVTIME 18:00 → D.M2 02-08 16:24
PROVIDERS: Family Medicine; ADMIT Surgery; ATTEND Surgery
DX: K81.0 Acute cholecystitis (principal); K31.84 Gastroparesis; N83.201 Unspecified ovarian cyst, right side

== ENCOUNTER 2020-02-13 21:32 | Inpatient (IN) | payer BC, OTHER ==
[~2020-02-13] VITALS: Ht 157.5 cm; Wt 61.4 kg
[~2020-02-13 21:32] MED LIST changes: +CELEXA20 MG PO; +HYDROCODON-ACE1 EA10 PO
--- NOTE | 2020-02-13 22:30 | NUR ---
URINE TO LAB. WARM BLANKET TO PATIENT.
[2020-02-13 22:45] VITALS: BP 136/85
[2020-02-13 22:50] LABS: BASOPHILS 0.1 % (0-2); EOSINOPHILS 0.1 % (0-7); HEMATOCRIT 44.3 % (36.0-48.0); HEMOGLOBIN 14.3 g/dL (12-16); IMMATURE GRANULOCYTES 0.2 % (0-5); MCHC 32.3 g/dL (31.0-37.0); MCV 86.9 fL (80.0-100.0); MEAN PLATELET VOLUME 10.7 fL (7.4-10.4); MONOCYTES 3.9 % (2-11); NEUTROPHILS 89.7 % (40-80); PLATELET COUNT 302 10x3/uL (130-400); RDW 15.9 % (11.5-14.5); WBC 18.8 10x3/uL (4.8-10.8)
[2020-02-13 22:50] LABS: BILIRUBIN NEGATIVE (NEGATIVE); KETONE LARGE mg/dL (NEGATIVE); NITRITE NEGATIVE (NEGATIVE); UROBILINOGEN NORMAL mg/dL (< 2)
[2020-02-13 22:52] LABS: HCG URINE NEGATIVE (NEGATIVE)
[2020-02-13 23:00] VITALS: BP 130/50
[2020-02-13 23:06] LABS: CALC OSMOLALITY 273 mosm/kg (275-300); CALCIUM 9.2 mg/dL (8.5-10.1); CARBON DIOXIDE 23.2 mmol/L (21.0-32.0); CHLORIDE - SERUM 99 mmol/L (98-107); POTASSIUM - SERUM 3.9 mmol/L (3.5-5.1); SODIUM 135 mmol/L (136-145); UREA NITROGEN 14 mg/dL (7-18); eGFR NON AFRICAN AMERICAN 74 mL/min (90-120)
[2020-02-13 23:11] LABS: GLUCOSE 155 mg/dL (74-106)
[2020-02-13 23:19] LABS: ALBUMIN 4.2 g/dL (3.4-5.0); ALKALINE PHOSPHATASE 116 U/L (30-120); ALT (SGPT) 39 U/L (10-68); AMYLASE - SERUM 71 U/L (25-115); BILIRUBIN - TOTAL 0.34 mg/dL (0.2-1.3); LIPASE 177 U/L (73-393); PROTEIN - SERUM 8.7 g/dL (6.4-8.2); TROPONIN-I < 0.017 ng/mL (0.000-0.060)
[2020-02-13 23:45] VITALS: BP 121/65
[2020-02-14] VITALS (9 sets, daily range): BP systolic 104–130; BP diastolic 48–76; Ht 157.5 cm; Wt 61.4 kg
--- NOTE | 2020-02-14 01:38 | NUR ---
ARRIVED TO UNIT WITH AT BEDSIDE. NO VOMITTING AT THIS TIME. REPORTS DECREASE IN PAIN AFTER MORPHINE ADMINISTRATION IN ER. ZOSYN INFUSING PER ORDER UPON ARRIVAL. ASSESSMENT PERFORMED. UNIT PROTOCALS AND PLAN OF CARE REVIEWED. DENIES FURTHER NEEDS. CPOC.
--- NOTE | 2020-02-14 07:50 | NUR ---
PT RESTING QUIETLY IN BED WITH SPOUSE AT BEDSIDE. RESP EVEN AND UNLABORED. SALINE LOC TO RIGHT FOREARM, SITE WITHOUT REDNESS OR EDEMA. DENIES FURTHER NEEDS AT THIS TIME. CL WITHIN REACH. ENCOURAGED TO CALL WITH NEEDS. CONTINUE POC
--- NOTE | 2020-02-14 16:08 | NUR ---
PATIENT CHANGED HER MIND SHE NOW WHAT SCD ON WHEN SHE IN BED.
[2020-02-15] VITALS: BP 107/66
[2020-02-15 04:00] VITALS: BP 109/57
--- NOTE | 2020-02-15 07:30 | NUR ---
JESUS IN BED WITH PT. QUESTIONS ABOUT PIPIDA AND PAIN MEDICATION. ANSWERED QUESTIONS. CL IN REACH. WCTM
[2020-02-15 08:55] LABS: BASOPHILS 0.1 % (0-2); EOSINOPHILS 0.6 % (0-7); HEMOGLOBIN 13.6 g/dL (12-16); IMMATURE GRANULOCYTES 0.3 % (0-5); LYMPHOCYTES 12.6 % (15-50); MCH 27.9 pg (26.0-34.0); MCHC 31.6 g/dL (31.0-37.0); MCV 88.1 fL (80.0-100.0); MEAN PLATELET VOLUME 10.6 fL (7.4-10.4); MONOCYTES 5.1 % (2-11); NEUTROPHILS 81.3 % (40-80); PLATELET COUNT 268 10x3/uL (130-400); RBC 4.88 10x6/uL (4.00-5.40); RDW 16.1 % (11.5-14.5)
[2020-02-15 09:13] LABS: WBC 11.3 10x3/uL (4.8-10.8)
[2020-02-15 09:46] VITALS: BP 109/51
--- NOTE | 2020-02-15 10:46 | NUR ---
PT IN ROOM. NO NEEDS AT THIS TIME. JESUS IN BED WITH HER. TOLERATED REG DIET. STATES PAIN AND NAUSEA ARE OK. CL IN REACH. WCTM
[2020-02-15 12:41] VITALS: BP 105/53
--- NOTE | 2020-02-15 14:42 | NUR ---
PT REQUESTING TO GO HOME. DR FOLEY PAGED.
[2020-02-15] MEDS ORDERED: ZOFRAN ODT4 MG/UDTAB PO (14:52)
[2020-02-15] MEDS ORDERED: HYDROCODON-ACE1 EA10 PO (14:54)
--- NOTE | 2020-02-15 16:20 | NUR ---
IV THERAPY REMOVED FROM LEFT FOREARM. DISCHARGE INSTRUCTIONS GIVEN. PT VERBALIZED UNDERSTANDING. REFUSED WHEELCHAIR DOWN. JESUS WITH HER. READY TO "GET HOME AND SEE HER BABIES."
== END 2020-02-15 16:38 | disposition home or self-care (01) | DRG 392 ==
LOC: D.ER 21:32 → OBSVTIME 02-14 01:10 → D.MS 02-14 01:10
PROVIDERS: Emergency Medicine; ADMIT Surgery; ATTEND Surgery
DX: R11.10 Vomiting, unspecified (principal); Z90.49 Acquired absence of other specified parts of digestive tract

== ENCOUNTER 2020-02-26 11:14 | Inpatient (IN) | payer BC, OTHER ==
[~2020-02-26] VITALS: Ht 157.5 cm; Wt 59.1 kg
[~2020-02-26 11:14] MED LIST changes: +ZOFRAN ODT4 MG/UDTAB PO
--- NOTE | 2020-02-26 12:00 | NUR ---
WHILE DRAWING PATIENTS BLOOD FOR LAB, PT REPORTS THAT SHE HAS BEEN HAVING SOME BLOOD IN HER STOOL
[2020-02-26 12:16] LABS: BASOPHILS 0.1 % (0-2); EOSINOPHILS 0.2 % (0-7); HEMOGLOBIN 10.9 g/dL (12-16); IMMATURE GRANULOCYTES 0.6 % (0-5); LYMPHOCYTES 6.6 % (15-50); MCH 28.2 pg (26.0-34.0); MCHC 32.1 g/dL (31.0-37.0); MCV 87.9 fL (80.0-100.0); MEAN PLATELET VOLUME 10.1 fL (7.4-10.4); MONOCYTES 1.5 % (2-11); RBC 3.87 10x6/uL (4.00-5.40); RDW 14.7 % (11.5-14.5); WBC 11.7 10x3/uL (4.8-10.8)
[2020-02-26 12:19] VITALS: BP 128/74
[2020-02-26 12:27] LABS: BILIRUBIN NEGATIVE (NEGATIVE); KETONE NEGATIVE (NEGATIVE); NITRITE NEGATIVE (NEGATIVE); UROBILINOGEN NORMAL mg/dL (< 2)
[2020-02-26 12:28] LABS: BACTERIA MODERATE HPF (NONE SEEN); PLATELET COUNT 465 10x3/uL (130-400)
[2020-02-26 12:29] LABS: HCG URINE NEGATIVE (NEGATIVE)
[2020-02-26 12:42] LABS: CALC OSMOLALITY 273 mosm/kg (275-300); CALCIUM 9.2 mg/dL (8.5-10.1); CHLORIDE - SERUM 102 mmol/L (98-107); CREATININE - SERUM 0.7 mg/dL (0.6-1.3); GLUCOSE 148 mg/dL (74-106); POTASSIUM - SERUM 3.3 mmol/L (3.5-5.1); SODIUM 136 mmol/L (136-145); UREA NITROGEN 9 mg/dL (7-18); eGFR NON AFRICAN AMERICAN > 90 mL/min (90-120)
[2020-02-26 12:51] LABS: ALBUMIN 2.3 g/dL (3.4-5.0); ALKALINE PHOSPHATASE 134 U/L (30-120); ALT (SGPT) 80 U/L (10-68); AMYLASE - SERUM 55 U/L (25-115); BILIRUBIN - TOTAL 0.26 mg/dL (0.2-1.3); LIPASE 195 U/L (73-393); PROTEIN - SERUM 7.7 g/dL (6.4-8.2); TROPONIN-I < 0.017 ng/mL (0.000-0.060)
--- NOTE | 2020-02-26 15:22 | NUR ---
COVID SWAB FOR UNIVERSAL ADMIT COLLECTED AND WALKED TO LAB.
[2020-02-26] MEDS ORDERED: ZOLOFT25 MG PO (15:43)
[2020-02-26 15:52] VITALS: BP 92/49; BMI 23.8
--- NOTE | 2020-02-26 16:35 | NUR ---
ALERT AND ORIENTED X4. ABDOMINAL TENDERNESS NOTED TO MID EPIGASTRIC AND RUQ OF ABDOMEN ON PALPATION WITH ABDOMEN SOFT AND BOWEL SOUNDS HYPOACTIVE X4 ANTERIOR. IVF INFUSING AT PRESCRIBED RATE TO LEFT WRIST WITH NO S/S OF INFECTION/INFILTRATION
--- NOTE | 2020-02-26 19:30 | NUR ---
HS MEDICATIONS GIVEN. GAVE MORPHINE AND ZOFRAN PER REQUEST FOR PAIN AND NAUSEA. WILL MONITOR FOR EFFECTIVENESS.
--- NOTE | 2020-02-26 20:00 | NUR ---
CALLED DR MOONEY PER PT REQUEST...SHE DOES NOT WANT TO DRINK MAG CIT[place] IF SHE NEEDS A SCOPE OR PROCEDURE, SHE WANTS TO WAIT UNTIL FRIDAY. PT IS GETTING TOMORROW.
[2020-02-26 21:11] VITALS: Ht 157.5 cm; Wt 59.1 kg
--- NOTE | 2020-02-26 21:14 | NUR ---
PT NOT CONSENTED FOR AM PROCEDURE, SHE WOULD LIKE TO WAIT TILL FRIDAY TO HAVE DONE. SHE WILL TALK TO MD IN AM.
[2020-02-26 21:18] VITALS: BP 110/63
[2020-02-27 01:23] VITALS: BP 122/70
[2020-02-27 05:08] VITALS: BP 128/79
--- NOTE | 2020-02-27 07:05 | NUR ---
PATINET COMPLAINING OF ABDOMINAL PAIN AND NAUSEA. MORPHINE 2MG AND ZOFRAN GIVEN FOR PAIN AND NAUSEA. PATIENT VERBALIZED REFUSING COLONOSCOPY AND CONSENT FOR PROCEDURE. STATED WANTED TO HAVE PROCEDURE ANOTHER DAY DUE TO WANTING TO GET TODAY. ABDOMINAL TENDERNESS NOTED TO MID EPIGASTRIC AREA WITH ABDOMEN FLAT WITH BOWEL SOUNDS HYPOACTIVE. ENCOURAGED TO USE CALL LIGHT FOR ASSSIT. PATIENT UP ADLIB TO BATHROOM.
[2020-02-27 07:55] LABS: BASOPHILS 0.2 % (0-2); EOSINOPHILS 0.9 % (0-7); HEMATOCRIT 29.1 % (36.0-48.0); HEMOGLOBIN 9.3 g/dL (12-16); IMMATURE GRANULOCYTES 0.9 % (0-5); LYMPHOCYTES 33.1 % (15-50); MCH 28.4 pg (26.0-34.0); MEAN PLATELET VOLUME 10.1 fL (7.4-10.4); MONOCYTES 4.6 % (2-11); NEUTROPHILS 60.3 % (40-80); PLATELET COUNT 439 10x3/uL (130-400); RBC 3.27 10x6/uL (4.00-5.40); RDW 14.6 % (11.5-14.5)
[2020-02-27 08:04] LABS: WBC 5.6 10x3/uL (4.8-10.8)
[2020-02-27 08:12] LABS: ALBUMIN 1.9 g/dL (3.4-5.0); ALKALINE PHOSPHATASE 108 U/L (30-120); ALT (SGPT) 61 U/L (10-68); BILIRUBIN - TOTAL 0.09 mg/dL (0.2-1.3); CALCIUM 8.7 mg/dL (8.5-10.1); CARBON DIOXIDE 25.9 mmol/L (21.0-32.0); CHLORIDE - SERUM 107 mmol/L (98-107); CREATININE - SERUM 0.6 mg/dL (0.6-1.3); POTASSIUM - SERUM 3.5 mmol/L (3.5-5.1); PROTEIN - SERUM 6.5 g/dL (6.4-8.2); SODIUM 141 mmol/L (136-145); eGFR NON AFRICAN AMERICAN > 90 mL/min (90-120)
[2020-02-27 08:22] VITALS: BP 115/73
[2020-02-27 08:23] LABS: CALC OSMOLALITY 277 mosm/kg (275-300); GLUCOSE 91 mg/dL (74-106); UREA NITROGEN 5 mg/dL (7-18)
--- NOTE | 2020-02-27 10:35 | NUR ---
PATIENT STATED WANTED TO LEAVE. RISK VERSUS BENEFITS DISCUSSED WITH AMA SIGNED. IV DISCONTINUED AND LEFT UNDER CARE OF SIGNIFIGANT OTHER.
== END 2020-02-27 10:35 | disposition left against medical advice (07) | DRG 392 ==
LOC: D.ER 11:14 → D.MS 14:36
PROVIDERS: Family Medicine; ADMIT Surgery; ATTEND Surgery
DX: K31.84 Gastroparesis (principal); K92.2 Gastrointestinal hemorrhage, unspecified

== ENCOUNTER 2020-02-28 06:57 | Inpatient (IN) | payer BC, OTHER ==
[2020-02-28] VITALS (8 sets, daily range): BP systolic 11–154; BP diastolic 56–87; Ht 157.5 cm; Wt 59.0 kg
[~2020-02-28] VITALS: Ht 157.5 cm; Wt 59.0 kg
[~2020-02-28 06:57] MED LIST changes: +ZOLOFT25 MG PO
[2020-02-28 07:34] LABS: BASOPHILS 0.3 % (0-2); EOSINOPHILS 0.5 % (0-7); IMMATURE GRANULOCYTES 1.5 % (0-5); LYMPHOCYTES 37.7 % (15-50); MCH 28.2 pg (26.0-34.0); MCHC 31.8 g/dL (31.0-37.0); MCV 88.6 fL (80.0-100.0); MEAN PLATELET VOLUME 10.5 fL (7.4-10.4); MONOCYTES 5.3 % (2-11); NEUTROPHILS 54.7 % (40-80); RDW 14.6 % (11.5-14.5)
--- NOTE | 2020-02-28 07:34 | NUR ---
URINE SENT TO LAB.
[2020-02-28 07:38] LABS: CALCIUM 9.2 mg/dL (8.5-10.1); CARBON DIOXIDE 25.1 mmol/L (21.0-32.0); CHLORIDE - SERUM 103 mmol/L (98-107); GLUCOSE 104 mg/dL (74-106); POTASSIUM - SERUM 3.4 mmol/L (3.5-5.1); SODIUM 140 mmol/L (136-145)
[2020-02-28 07:42] LABS: CALC OSMOLALITY 276 mosm/kg (275-300); CREATININE - SERUM 0.8 mg/dL (0.6-1.3); UREA NITROGEN 7 mg/dL (7-18); eGFR NON AFRICAN AMERICAN > 90 mL/min (90-120)
[2020-02-28 07:44] LABS: ALBUMIN 2.6 g/dL (3.4-5.0); ALKALINE PHOSPHATASE 132 U/L (30-120); ALT (SGPT) 86 U/L (10-68); AMYLASE - SERUM 92 U/L (25-115); LIPASE 261 U/L (73-393); PROTEIN - SERUM 7.7 g/dL (6.4-8.2)
[2020-02-28 07:46] LABS: HEMOGLOBIN 12.1 g/dL (12-16); RBC 4.29 10x6/uL (4.00-5.40); WBC 7.6 10x3/uL (4.8-10.8)
[2020-02-28 07:47] LABS: PLATELET COUNT 614 10x3/uL (130-400)
--- NOTE | 2020-02-28 08:31 | NUR ---
HEMOCCULT +, ERMD NOTIFIED
[2020-02-28 08:39] LABS: HCG URINE NEGATIVE (NEGATIVE)
[2020-02-28 08:48] LABS: BILIRUBIN NEGATIVE (NEGATIVE); KETONE MODERATE mg/dL (NEGATIVE); NITRITE NEGATIVE (NEGATIVE); UROBILINOGEN NORMAL mg/dL (< 2)
--- NOTE | 2020-02-28 08:49 | NUR ---
COVID SWAB SENT TO LAB.
[2020-02-28 08:51] LABS: BACTERIA MODERATE HPF (NONE SEEN); WHITE CELLS - URINE OCC HPF (0-4)
--- NOTE | 2020-02-28 12:35 | NUR ---
REPORT TO JEANNINE HAMILTON.
--- NOTE | 2020-02-28 13:10 | NUR ---
TEMP 97.9 BP 111/68 HR 46 SPO2 100% RECEIVED PT FROM ED VIA WC. NO ACUTE DISTRESS NOTED. AT BEDSIDE. RATES PAIN IN ABD A 4 ON A SCALW OF 1-10. BED IN LOWEST P[OSITION, SIDE RAIL UP X1. NEEDS ANTICIPATED AND MET. WILL CONTINUE TO MONITOR
--- NOTE | 2020-02-28 19:28 | NUR ---
PATIENT RESTING IN BED WITH NO S/S OF DISTRESS AND DENIES NEEDS AT THIS TIME. AT BEDSIDE. BED LOWEST POSITION AND CALL LIGHT WITHIN REACH. ENCOURAGED THE PATIENT TO CALL IF SHE HAS NEEDS. WILL CONTINUE TO MONITOR.
[2020-02-29 04:00] VITALS: BP 104/58; BP 117/78
[2020-02-29 06:55] LABS: BASOPHILS 0.2 % (0-2); EOSINOPHILS 1.9 % (0-7); IMMATURE GRANULOCYTES 1.2 % (0-5); LYMPHOCYTES 38.2 % (15-50); MCH 27.4 pg (26.0-34.0); MCHC 30.5 g/dL (31.0-37.0); MCV 89.8 fL (80.0-100.0); MEAN PLATELET VOLUME 9.9 fL (7.4-10.4); MONOCYTES 5.2 % (2-11); NEUTROPHILS 53.3 % (40-80); RDW 14.5 % (11.5-14.5)
[2020-02-29 07:06] LABS: HEMATOCRIT 29.8 % (36.0-48.0); HEMOGLOBIN 9.1 g/dL (12-16); PLATELET COUNT 422 10x3/uL (130-400); RBC 3.32 10x6/uL (4.00-5.40); WBC 4.2 10x3/uL (4.8-10.8)
[2020-02-29 07:59] VITALS: BP 120/84
[2020-02-29 09:07] LABS: ALBUMIN 2.6 g/dL (3.4-5.0); ALKALINE PHOSPHATASE 115 U/L (30-120); ALT (SGPT) 76 U/L (10-68); BILIRUBIN - TOTAL 0.17 mg/dL (0.2-1.3); CALCIUM 8.6 mg/dL (8.5-10.1); CARBON DIOXIDE 29.4 mmol/L (21.0-32.0); CHLORIDE - SERUM 104 mmol/L (98-107); CREATININE - SERUM 0.6 mg/dL (0.6-1.3); GLUCOSE 77 mg/dL (74-106); POTASSIUM - SERUM 3.9 mmol/L (3.5-5.1); PROTEIN - SERUM 6.5 g/dL (6.4-8.2); SODIUM 139 mmol/L (136-145); eGFR NON AFRICAN AMERICAN > 90 mL/min (90-120)
[2020-02-29 09:12] LABS: CALC OSMOLALITY 273 mosm/kg (275-300); UREA NITROGEN 3 mg/dL (7-18)
[2020-02-29 14:10] LABS: HEPATITIS C ANTIBODY 0.1 S/CO RAT (0.0-0.9)
[2020-02-29 18:09] VITALS: BP 101/58
--- NOTE | 2020-02-29 18:26 | NUR ---
BEGAN GETTING NAUSIATED AGAIN. LOST IV A FEW HOURS AGO WHEN TOLD SHE MIGHT BE DISCHARGED TOMORROW AND RECEIVED ORDER FOR PO PAIN MEDS. PATIENT HAS NOW STARTED VOMITTING AGAIN. GOT AN IV IN RIGHT AC AND STARTED ZOFRAN DRIP AGAIN AT 4.7ML/HR. C/O SEVERE HDZ. COLD PACK FOR HEAD AND CONTINUING TO MONITOR FOR PO PAIN MED AND ZOFRAN EFFECTIVENESS. AT BEDSIDE.
--- NOTE | 2020-02-29 18:43 | NUR ---
PT STILL C/O SEVER HDZ 30MIN AFTER PO MED ADMINISTRATION. GAVE IV MORPHINE 4MG VERY SLOWLY. MONITORING RESPIRATORY EFFORTS AND SPO2 CLOSELY. AT BEDSIDE. CALL LIGHT WITHIN REACH.
[2020-02-29 20:00] VITALS: BP 110/62
--- NOTE | 2020-02-29 20:30 | NUR ---
SUPINE IN BED, EYES CLOSED, RESPIRATIONS EVEN/ NONLABORED. AT BEDSIDE. CTM.
--- NOTE | 2020-03-01 00:46 | NUR ---
I have reviewed this patient and I concur with the Shift Assessment completed by the Licensed Practical Nurse today this shift.
[2020-03-01 04:00] VITALS: BP 102/64
[2020-03-01 07:48] LABS: CALC OSMOLALITY 269 mosm/kg (275-300); CALCIUM 9.1 mg/dL (8.5-10.1); CARBON DIOXIDE 29.6 mmol/L (21.0-32.0); CHLORIDE - SERUM 100 mmol/L (98-107); CREATININE - SERUM 0.6 mg/dL (0.6-1.3); GLUCOSE 79 mg/dL (74-106); POTASSIUM - SERUM 4.4 mmol/L (3.5-5.1); SODIUM 137 mmol/L (136-145); eGFR NON AFRICAN AMERICAN > 90 mL/min (90-120)
[2020-03-01 07:49] LABS: UREA NITROGEN 4 mg/dL (7-18)
[2020-03-01 07:50] LABS: BASOPHILS 0.3 % (0-2); EOSINOPHILS 1.5 % (0-7); IMMATURE GRANULOCYTES 1.3 % (0-5); LYMPHOCYTES 33.2 % (15-50); MCH 27.7 pg (26.0-34.0); MCHC 31.3 g/dL (31.0-37.0); MCV 88.4 fL (80.0-100.0); MONOCYTES 5.1 % (2-11); NEUTROPHILS 58.6 % (40-80); RDW 14.2 % (11.5-14.5)
[2020-03-01 07:55] LABS: HEMATOCRIT 36.7 % (36.0-48.0); HEMOGLOBIN 11.5 g/dL (12-16); PLATELET COUNT 564 10x3/uL (130-400); RBC 4.15 10x6/uL (4.00-5.40); WBC 5.9 10x3/uL (4.8-10.8)
[2020-03-01 09:21] VITALS: BP 109/74; BP 130/44
[2020-03-01 11:38] VITALS: BP 110/75; BP 128/45
--- NOTE | 2020-03-01 11:58 | NUR ---
AMBULATED IN HALLWAY WITH FRIEND AROUND NURSING STATION. TOLERATED WITHOUT COMPLAINTS
[2020-03-01] MEDS ORDERED: ANUSOL-HC25 MG RC (13:02)
[2020-03-01] MEDS ORDERED: LEVSIN/ANASP0.125 MG PO (13:02)
--- NOTE | 2020-03-01 13:48 | MORECARE ---
CASE MANAGEMENT DISCHARGE SUMMARY PATIENT: BETTY BRADFORD UNIT: [id number] ADM DATE: 02/28/20 AGE: 19 : [birth year] SEX: F ROOM/BED: D.2238 AUTHOR: IMANI BHATT PHYSICIAN: REFERRING PHYSICIAN: DALTON SANTILLAN MD DATE OF SERVICE: 03/01/20 Discharge Plan Patient Name: BETTY BRADFORD Facility: [facility]:[place] : 2000 Planned Disposition: Anticipated Discharge Date: Discharge Date: Expected LOS: Initial Reviewer: [email or web address] Initial Review Date: 03/01/2020 Generated: 03/01/20 2:47 pm DCPIA - Discharge Planning Initial Assessment Updated by [email or web address]: Katerine Otto on 03/01/20 1:47 pm * Is the patient Alert and Oriented? Yes * Preadmission Environment Home with Family * ADLs Independent * Equipment None * Community resources currently utilized None * Additional services required to return to the preadmission environment? No * Can the patient safely return to the preadmission environment? Yes * Has this patient been hospitalized within the prior 30 days at any hospital? Yes Patient Name: BETTY BRADFORD Page 96799 at 1348 All edits/amendments must be made on the electronic document DICTATION DATE: 03/01/20 1347 PROPERTY LOSS INSURANCE CLAIM ADJUSTER: SUSHIL 03/01/20 1347 RPT#: [id number] DC DATE: STATUS: ADM IN [facility] [address] [place] [address] END OF REPORT
--- NOTE | 2020-03-01 16:18 | NUR ---
REVIEWED DISCHARGE AND EDUCATION INFORMATION WITH PT AT 1415. RECEIVED WELL. NO ACUTE DISTRESS NOTED. SAID HAD TO LEAVE TO MAKE AN APPOINTMENT AND WOULD BE BACK TO PICK HER UP. SHE WALKED OUT OF HER ROOM AROUND 1445 WITHOUT NOTIFYING HER NURSE OR ANY OTHER STAFF.
--- NOTE | 2020-03-01 16:39 | MORECARE ---
CASE MANAGEMENT DISCHARGE SUMMARY PATIENT: BETTY BRADFORD UNIT: [id number] ADM DATE: 02/28/20 AGE: 19 : [birth year] SEX: F ROOM/BED: D.[facility]8 AUTHOR: NOVADOC PHYSICIAN: REFERRING PHYSICIAN: DALTON SANTILLAN MD DATE OF SERVICE: 03/01/20 Discharge Plan Patient Name: BETTY BRADFORD [facility] [facility] 2000 Planned Disposition: Anticipated Discharge Date: Discharge Date: 03/01/2020 Expected LOS: Initial Reviewer: [email or web address] Initial Review Date: 03/01/2020 Generated: 03/01/20 5:39 pm DCPIA - Discharge Planning Initial Assessment Updated by [email or web address]: Katerine Otto on 03/01/20 1:47 pm * Is the patient Alert and Oriented? Yes * Preadmission Environment Home with Family * ADLs Independent * Equipment None * Community resources currently utilized None * Additional services required to return to the preadmission environment? No * Can the patient safely return to the preadmission environment? Yes * Has this patient been hospitalized within the prior 30 days at any hospital? Yes Last DP export: 03/01/20 12:48 p Patient Name: BETTY BRADFORD Page 28334 at 1639 All edits/amendments must be made on the electronic document DICTATION DATE: 03/01/20 1639 ECONOMIC CONSULTANT: SUSHIL 03/01/20 1639 RPT#: [id number] DC DATE:03/01/20 STATUS: DIS IN [facility] [address] [place] [address] END OF REPORT
--- NOTE | 2020-03-02 18:34 | OP ---
PATIENT NAME: BETTY BRADFORD MEDICAL RECORD: [id number] :[birth year] LOCATION:D.[id number] ADMISSION DATE:02/28/20 SURGEON: LEONARD MOONEY MD DATE OF OPERATION: 02/29/2020 PREOPERATIVE DIAGNOSES: 1. Generalized abdominal pain. 2. Hematochezia. POSTOPERATIVE DIAGNOSES: 1. Generalized abdominal pain. 2. Hematochezia with probable hematochezia coming from the internal hemorrhoids. 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 4. LA grade I distal esophagitis. PROCEDURES: 1. Total colonoscopy to cecum. 2. Ileoscopy with biopsies. 3. Stool cultures. 4. Random colon and rectal biopsies. 5. Esophagogastroduodenoscopy with duodenal, antral, and distal esophageal biopsies. The risks, possible complications, and alternatives to the procedure were explained to the patient. She elected to proceed. ENDOSCOPIC COURSE: The patient was conveyed to endoscopy suite electively on 02/29/2020. IV sedation was induced by the anesthesia staff. The patient was placed in the Pierre position. A digital rectal examination was performed. I identified a prolapsed hemorrhoid that was a grade IV prolapse. I inserted a colonoscope through the anus. It was easily advanced to the cecum. The prep was adequate. I intubated the ileum. The ileum was normal. I noted no evidence of ileitis. I was able to advance up the ileum about a foot. Endoscopic biopsies were obtained. I then withdrew into the colon. Stool was obtained for stool culture as well as stool studies. I then slowly withdrew the endoscope. A combination of normal imaging and narrow band imaging were utilized. There was no evidence of colitis or proctitis. No masses or polyps were noted. The pullback was greater than a 15-minute pullback. A retroflex view was obtained in the rectum. This revealed enlarged internal hemorrhoids. I then unretroflexed the scope and removed it under direct vision. As I found no apparent bleeding source during the lower endoscopy, I proceeded with an upper endoscopy, which was the plan that I had discussed with the patient. A bite block was inserted. A gastroscope was inserted into the mouth. It was advanced easily into the hypopharynx. The esophagus was easily intubated as were the stomach and duodenum. Duodenal biopsies were obtained. These were cold endoscopic biopsies that were obtained in the third portion of the duodenum. I then withdrew into the antrum. Cold endoscopic antral biopsies were obtained. These are obtained to check for H. pylori. I saw no erosions. No source of bleeding. No evidence of bleeding. I then withdrew into the distal esophagus. Distal esophageal biopsies were obtained in the area that appeared to contain Beatty esophagus. The endoscope was then withdrawn under direct vision. OPERATIVE REPORT [id number] BETTY BRADFORD The patient was then conveyed back to her room. I would treat her for bleeding hemorrhoids. I will see her in the office in 2-3 weeks. NTS:[id number] Voice Confirmation ID: [id number] DOCUMENT ID: [id number] LEONARD MOONEY MD at 1834 CC: DALTON SANTILLAN MD [id number] DICTATION DATE: 03/01/20 1142 GENERATOR REBUILDER: 03/01/20 2209 DIS IN 03/01/20 [facility] [address] [place] [address]
== END 2020-03-01 16:31 | disposition home or self-care (01) | DRG 392 ==
LOC: D.ER 06:57 → D.MS 10:58 → D.SDCHOLD 02-29 15:37 → D.MS 03-01 16:31
PROVIDERS: Emergency Medicine; Surgery; ADMIT Family Medicine; ATTEND Family Medicine
PROC: 0DB98ZX Excision of Duodenum, Via Natural or Artificial Opening Endoscopic, Diagnostic (ICD-10-PCS; 2020-02-29)
PROC: 0DB68ZX Excision of Stomach, Via Natural or Artificial Opening Endoscopic, Diagnostic (ICD-10-PCS; 2020-02-29)
PROC: 0DB58ZX Excision of Esophagus, Via Natural or Artificial Opening Endoscopic, Diagnostic (ICD-10-PCS; 2020-02-29)
PROC: 0DBP8ZX Excision of Rectum, Via Natural or Artificial Opening Endoscopic, Diagnostic (ICD-10-PCS; 2020-02-29)
PROC: 0DBE8ZX Excision of Large Intestine, Via Natural or Artificial Opening Endoscopic, Diagnostic (ICD-10-PCS; principal; 2020-02-29 13:30)
DX: K20.9 Esophagitis, unspecified (principal); K64.8 Other hemorrhoids; K22.70 Barrett's esophagus without dysplasia